=== PATIENT | male | born 1970 | race Caucasian/White ===

== ENCOUNTER 2019-05-11 17:16 | Emergency (ER) | payer OTHER, SELFPAY ==
[2019-05-11 17:19] VITALS: BP 161/92; PULSE 68; RESP 16; TEMP 36.9; O2SAT 99
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
== END 2019-05-11 18:43 | disposition home or self-care (01) ==
PROVIDERS: Emergency Provider Physician Assistant; PCP Internal Medicine
DX: S53.401A Unspecified sprain of right elbow, initial encounter (principal); M75.21 Bicipital tendinitis, right shoulder; V49.40XA Driver injured in collision with unspecified motor vehicles in traffic accident, initial encounter
CPT/HCPCS: 99283; 73080

== ENCOUNTER 2023-12-05 20:02 | Emergency (ER) | payer BC, SELFPAY ==
[2023-12-05 20:07] VITALS: BP 158/89; PULSE 64; TEMP 36.6; O2SAT 96
--- NOTE | 2023-12-05 20:45 | DI.RAD_ITS ---
Exam(s) XR TIB/FIB LT EXAM: XR TIB/FIB LT CLINICAL HISTORY: puncture w saw, distal, eval for fx. TECHNIQUE: 2D digital imaging was performed. Two views. COMPARISON: No exams were available for comparison FINDINGS: BONES: No acute fracture is present. No bony destructive lesion is seen. Visualized portion of knee a nd ankle joints are unremarkable. SOFT TISSUE: No foreign body. IMPRESSION: Unremarkable radiographs of the left tibia and fibula. DATA REPOSITORY: RADIATION DOSE DELIVERED:
--- OUTSIDE RECORDS SUMMARY | 2023-12-05 21:15 | XMS_ITS | Continuity of Care Document ---
Author Organization [facility] Address [address] [place] [phone] Care Team Providers Care Livestock Yard Attendant Name Role Phone Aristides Sheets DO Primary Care Physician [phone] Encounter [facility] NBR [id number] Date(s): 11/02/22 - 11/02/[address] [address] [place] Discharge Disposition: Home or Self Care Attending Physician: Molly Anglin PA-C Admitting Physician: Molly Anglin PA-C Referring Physician: Molly Anglin PA-C Allergies, Adverse Reactions, Alerts Substance Reaction Severity Status simvastatin Muscle aches February 2016 Moderate A ctive Seasonal Unknown Moderate Active Immunizations Given and Recorded Vaccine Date Status Refusal Reason influenza virus vaccine, inactivated 12/25/21 Give n tetanus/diphth/pertuss (Tdap) adult/adol 1 12/14/14 Recorded 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[employer] Medications pravastatin 40 mg oral tablet See Instructions, TAKE 1 TABLET BY MOUTH AT NIGHT FOR HIGH CHOLESTEROL, # 90 tab, 3 Refill(s), Pharmacy: [facility] #[id number] Start Date: 07/03/22 Status: Ordered Problem List Condition Confirmation Course Effective Dates Status H ealt Status Informant Diverticular disease Confirmed Active Hypercholesterolemia Confirmed Active Leukocytosis Confirmed Active Results Radiology Reports * Exam Date Time Procedure Performing Provider Status 11/02/22 7:28 AM US Abdomen Limited Henrique Gandhi; Sylvia th (Verified) Notes: (US Abdomen Limited) Reason For Exam: RUQ/right flank pain US Abdomen Limited PROCEDURE INFORMATION: Exam: US Abdomen, Limited; Right Upper Quadrant Exam date and time: 11/02/2022 6:58 AM Age: 52 years old Clinical indication: Right upper quadrant pain; Unspecified abdominal pain; Additional info: Ruq/right flank pain TECHNIQUE: Imaging protocol: Real time ultrasound of the abdomen with image documentation. Limited exam focused on the right upper quadrant. COMPARISON: CT ABD/PELVIS WO CONTRAST 09/02/2017 10:55 AM FINDINGS: Liver: Liver 16 cm. Liver is unremarkable. Gallbladder: gallbladder normal. No pericholecystic fluid or gallbladder wall thickening. Biliary ducts: Common bile duct 4 mm. Common bile duct normal. Pancreas: Poorly characterized pancreas secondary to overlying bowel gas. Right kidney: Right kidney 10.8 cm. Right kidney is normal. Portal venous: Flow within the portal vein is towards the liver- hepatopedal IMPRESSION: Normal right upper quadrant ultrasound. THIS DOCUMENT HAS BEEN ELECTRONICALLY SIGNED BY GONZALO GURROLA MD on 11/02/2022 02:27 PM Final Signed by: Gonzalo Gurrola MD Signed (Electronic Signature): 11/02/2022 2:27 pm Social History Social History Type Response Tobacco Never tobacco user T obacco Use:. Sex Patient Care team information Care Team Personnel Name: Aristides Sheets DO Position: Physician Member Role: Primary Care Physician Address: Address: [address] [place] [phone] [place] Care Team Related Persons Name: ROOSEVELT ROBLES Address: Home
--- OUTSIDE RECORDS SUMMARY | 2023-12-05 21:16 | XMS_ITS | Continuity of Care Document ---
Author Organization [facility] Ambulatory Clinics Address [address] [place] [address] Care Team Providers Care Register Repairer Name Role Phone Aristides Sheets DO Primary Care Physician Encounter [facility] NBR [id number] Date(s): 10/31/22 - 10/31/22 [facility] Ambulatory Clinics [address] [place] [phone] [place] Discharge Disposition: Home Allergies, Adverse Reactions, Alerts Substance Reaction Severity Status simvastatin Muscle aches February 2016 Moderate A ctive Seasonal Unknown Moderate Active Assessment and Plan Future Appointments Future Scheduled Tests Radiology* US Abdomen Limited 11/02/22 Immunizations Given and Recorded Vaccine Date Status Refusal Reason influenza virus vaccine, inactivated 12/25/21 Give n tetanus/diphth/pertuss (Tdap) adult/adol 1 12/14/14 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 Sex Patient Care team information Care Team Personnel Name: Aristides Sheets DO Position: Physician Member Role: Primary Care Physician Address: Address: [address] [place] [phone] [place] Care Team Related Persons Name: ROOSEVELT ROBLES Address: Home
--- OUTSIDE RECORDS SUMMARY | 2023-12-05 21:16 | XMS_ITS | Encounter Summary ---
Author Organization [facility] Address [address] [place] [address] Care Team Providers Care Appointment Clerk Name Role Phone Unknown, Provider Primary Care Provider Encounter Details Date Type Department Care Team (Latest Contact Info) Description 05/13/2017 10:10 EST - 05/13/2017 23:59 EST Hospital Encounter [address] [address] Unknown, Provider, Discharge Disposition: Home or Self Care Social History Tobacco Use Types Packs/Day Years Used Date Smoking Tobacco: Never Assessed Sex and Gender Information Value Date Recorded Sex Assigned at Not on file Gender Identity Not on file Sexual Orientation Not on file documented as of this encounter Discharge Disposition Disposition Code Departure Means Destination Home or Self Halfway documented in this encounter Plan of Treatment Not on file documented as of this encounter Visit Diagnoses Not on filedocumented in this encounter Care Teams Appointment Clerk Relationship Specialty Start Date End Date Unknown, Provider, PCP - General 01/25/15 05/15/17 documented as of this encounter
--- OUTSIDE RECORDS SUMMARY | 2023-12-05 21:16 | XMS_ITS | Encounter Summary ---
Author Organization [facility] Address [address] [place] [address] Care Team Providers Care Donor Services Coordinator Name Role Phone Nadia Hansen DO Primary Care Provider [phone] Encounter Details Date Type Department Care Team (Late st Contact Info) Description 01/10/2021 Lab Requisition [facility] - [facility] [address] [place] [address] Tahir Aleman, [address] GALLO [address] [place] [phone] Neoplasm of unspecified behavior of bone, soft tissue, and skin Social History Tobacco Use Types Packs/Day Years Used Date Smoking Tobacco: Never Assessed Interpersonal Safety Answer Date Record ed Physically Hurt Never 10/18/2019 Verbally Threaten Not on file 10/18/2019 Sex and Gender Information Value Date Recorded Sex Assigned at Not on file Gender Identity Not on file Sexual Orientation Not on file documented as of this encounter Plan of Treatment Not on file documented as of this encounter Procedures Procedure Name Priority Date/Time Associated Diagnosis Comments SURGICAL PATHOLOGY Today 01/09/2021 9: 25 EDT Neoplasm of unspecified behavior of bone, soft tissue, and skin documented in this encounter Results * SURGICAL PATHOLOGY (01/09/2021 9:25 EDT) Note to Patient The following pathology results have been interpreted by your pathologist and may be available to you before your health provider has had the opportunity to review them. Please allow time for your provider to receive these results and explore management options, if applicable. 01/11/2021 8:49 [facility] Final Diagnosis A. SKIN OF GNOSTICIST, LEFT, SHAVE BIOPSY: - Seborrheic keratosis. 01/11/2021 8:49 [facility] Attestation By the signature below, the attending physician certifies that they have 1) personally conducted a gross and/or microscopic examination of the described specimen(s), and/or personally interpreted the results of laboratory testing of the described specimen(s), and 2) personally rendered or confirmed the above diagnosis. 01/11/2021 8:49 [facility] at 0849 Clinical History Growing lesion; clinical diagnosis code: D49.2 01/11/2021 8:49 [facility] Gross Description A. Received in formalin labelled with proper patient identification (initials K, K) and left mandaen is a shave biopsy of a cantu-brown cobblestone plaque measuring 1.4 x 1.1 x 0.2 cm. Inked, serially sectioned and submitted entirely in A1-A2. TORRI SPEARS(ASCP) 01/10/2021 19:40 01/11/2021 8:49 [facility] Performing Lab [facility] 01/11/2021 8:49 [facility] Scanned Images 01/11/2021 8:49 [facility] Tissue TISSUE SPECIMEN FROM SKIN / Unknown 01/09/2021 9:25 EDT 01/10/2021 16:57 EDT Tahir Aleman DO PATHOLOGY ORDER [facility] [address] [place] [address] documented in this encounter Visit Diagnoses Diagnosis Neoplasm of unspecified behavior of bone, soft tissue, and skin documented in this encounter Care Teams Donor Services Coordinator Relationship Specialty Start Date End Date Nadia Hansen DO [address] [place] [address] PCP - General Family Medicine - Primary Care 05/16/20 documented as of this encounter
--- OUTSIDE RECORDS SUMMARY | 2023-12-05 21:16 | XMS_ITS | Encounter Summary ---
Author Organization [facility] Address [address] [place] [address] Care Team Providers Care Radio Television Technical Director Name Role Phone Unavailable Primary Care Provider Unavailabl e Encounter Details Date Type Department Care Team (Late st Contact Info) Description 01/20/2004 Results Only [facility] [address] [place] [address] Alvin Infante MD [address] [place] [phone] Social History Tobacco Use Types Packs/Day Years Used Date Smoking Tobacco: Never Assessed Sex and Gender Information Value Date Recorded Sex Assigned at Not on file Gender Identity Not on file Sexual Orientation Not on file documented as of this encounter Plan of Treatment Not on file documented as of this encounter Procedures Procedure Name Priority Date/Time Associated Diagnosis Comments SURGICAL PATHOLOGY Routine 01/20/2004 0:00 EST documented in this encounter Results * SURGICAL PATHOLOGY (01/20/2004 0:00 EST) Pathology Report: SURGICAL PATHOLOGY REPORT Reports generated via electronic interface contain original data; however they are lacking the format of the original report. Caution should be taken when reading/interpreti ng unformatted reports. Name: ? GONZALO APPLE ? Accession #: ? [id number] ? : ? 1970 (Age: 33) ??M ? Collect Date: ? 01/20/2004 ? Location: ? [facility] ? Receive Date: ? 01/21/2004 ? Provider: SHANNON INFANTE MD Copy to: ? Final Pathologic Diagnosis: A. ?Portion of vas deferens, left, vasectomy: 1. ?Full luminal cross section identified with no pathologic features. B. ?Portion of vas deferens, right, vasectomy: ? 1. ?? Full luminal cross section identified with no pathologic features. Document reviewed and electronically signed by: CY CHATTERJEE MD Report ??Date: 01/25/2004 11:31 By the signature above, the attending physician certifies that he/she has personally conducted a gross and/or microscopic examination of the described specimens and rendered or confirmed the above diagnosis. Specimen(s) Received: A. ?Left vas deferens (#1) B. ?Right vas deferens (#2) Clinical History: ? Family planning Gross Description: ? Received in formalin labelled Knights and left vas deferens is a 0.7 x 0.3 x 0.2 cm white-gibbs, tubular soft tissue with a pinpoint lumen. ??The specimen is bisected and submitted in its entirety as (A). Received in formalin labelled Knights and right vas deferens is a 0.3 cm in length by 0.3 cm in diameter white-gibbs, tubular structure with a pinpoint lumen which is submitted in toto as (B). ??(Mira Cavazos)/joseph End of Report [facility] 01/20/2004 01/21/2004 15: 11 EST Alvin Infante MD PATHOLOGY ORDER[facility]LES [facility] [address] [place] [address] documented in this encounter Visit Diagnoses Not on filedocumented in this encounter
--- OUTSIDE RECORDS SUMMARY | 2023-12-05 21:16 | XMS_ITS | Continuity of Care Document ---
Author Organization [facility] Ambulatory Clin[facility] Address [address] [place] [address] Care Team Providers Care Teamcenter Solution Architect Name Role Phone Aristides Sheets DO Primary Care Physician Encounter [facility] NBR [id number] Date(s): 12/25/21 - 12/25/21 [facility] [address] [place], [place] [address] Encounter Diagnosis Routine adult health maintenance(Discharge Diagnosis) - 12/25/21 Fatigue(Discharge Diagnosis) - 12/25/21 Lipid screening(Discharge Diagnosis) - 12/25/21 Prostate cancer screening(Discharge Diagnosis) - 12/25/21 Encounter for immunization(Discharge Diagnosis) - 12/25/21 Discharge Disposition: Home or Self Care Attending Physician: Aristides Sheets DO Allergies, Adverse Reactions, Alerts Substance Reaction Severity Status simvastatin Muscle aches February 2016 Moderate A ctive Seasonal Unknown Moderate Active Functional Status 12/25/21 Other exposure to Infectious Disease Non e Immunizations Given and Recorded Vaccine Date Status Refusal Reason influenza virus vaccine, inactivated 12/25/21 Give n tetanus/diphth/pertuss (Tdap) adult/adol 1 12/14/14 Recorded 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[employer] 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 pravastatin 40 mg oral tablet 1 Unknown, 0 Refill(s) Start Date: 12/21/21 Status: Ordered Problem List Condition Confirmation Course Effective Dates Status H ealth Status Informant Diverticular disease Confirmed Active Hypercholesterolemia Confirmed Active Leukocytosis Confirmed Active Vital Signs Most recent to oldest [Reference Range]: 1 Temperature Tympanic [36.6-37.9 Deg C] 3 6.2 Deg C *LOW* (12/25/21 8:22 AM) Peripheral Pulse Rate [60-100 bpm] 54 bp m *LOW* (12/25/21 8:22 AM) Blood Pressure [90-140/60-90 mmHg] 110/6 2mmHg (12/25/21 8:22 AM) Weight 99.6 kg (12/25/21 8:22 AM) Weight Measured (lbs) 219.58 lb (12/25/21 8:22 AM) Social History Social History Type Response Tobacco Never tobacco user T obacco Use:. Sex Patient Care team information Personnel Name: Aristides Sheets DO Address: Address: [address] [place] [phone]
--- OUTSIDE RECORDS SUMMARY | 2023-12-05 21:16 | XMS_ITS | Encounter Summary ---
Author Organization [facility] Address [address] [place] [address] Care Team Providers Care Winding Machine Operator Name Role Phone Nadia Hansen DO Primary Care Provider [phone]- [phone] Encounter Details Date Type Department Care Team (Late st Contact Info) Description 05/23/2020 Lab Requisition [facility] Pathology & Laboratory Medicine - [facility] [address] [place] [address] Brad Blake MD [address] [place] [phone] Encounter for screening for malignant neoplasm of colon; Melena; Lower abdominal pain, unspecified; Diarrhea, unspecified Social History Tobacco Use Types Packs/Day Years [...] Date/Time Associated Diagnosis Comments SURGICAL PATHOLOGY Today 05/23/2020 9: 17 EST Encounter for screening for malignant neoplasm of colon Melena Lower abdominal pain, unspecified Diarrhea, unspecified documented in this encounter Results * SURGICAL PATHOLOGY (05/23/2020 9:17 EST) Final Diagnosis A. COLON, RANDOM, BIOPSY: - Colonic mucosa with no significant diagnostic abnormality. B. COLON, SIGMOID, 2 MM, BIOPSY: - Colonic mucosa with prominent lymphoid aggregate. C. COLON, SIGMOID, BIOPSY: - Hyperplastic polyp. - Deeper levels examined. D. COLON, SIGMOID, MID, BIOPSY: - Hyperplastic polyp. 05/26/2020 11:26 [facility] Attestation By the signature below, the attending physician certifies that they have 1) personally conducted a gross and/or microscopic examination of the described specimen(s), and/or personally interpreted the results of laboratory testing of the described specimen(s), and 2) personally rendered or confirmed the above diagnosis. 05/26/2020 11:26 [facility] at 1126 Clinical History History diverticulosis, hematochezia, lower abdominal pain; clinical diagnosis code: Z12.1, K92.1, K10.30, R19.7 05/26/2020 11:26 [facility] Gross Description A. Received in formalin labelled with proper patient identification (initials K, K) and random colon Bx is a single fragment of gibbs tissue (0.3 x 0.2 x 0.2 cm). The specimen is submitted entirely in A1. B. Received in formalin labelled with proper patient identification (initials K, K) and sigmoid colon 2 mm is a single fragment of gibbs tissue (0.1 x 0.1 x 0.1 cm). The specimen is submitted in B1. C. Received in formalin labelled with proper patient identification (initials K, K) and sigmoid colon Bx is a single fragment of gibbs tissue (0.3 x 0.2 x 0.2 cm). The specimen is submitted in C1. D. Received in formalin labelled with proper patient identification (initials K, K) and mid sigmoid colon polyp 2 mm is a single fragment of gibbs tissue (0.3 x 0.2 x 0.2 cm). The specimen is submitted in D1. TORRI GARCIA(ASCP) 05/23/2020 16:14 05/26/2020 11:26 [facility] Performing Lab [facility] 05/26/2020 11:26 [facility] Scanned Images 05/26/2020 11:26 EST [facility] Tissue COLON STRUCTURE / Unknown 05/23/2020 9:17 EST 05/23/2020 16:07 EST Tissue specimen (specimen) POLYP OF COLON / Unknown 05/23/2020 9:17 EST 05/23/2020 16:07 EST Tissue specimen (specimen) COLON STRUCTURE / Unknown 05/23/2020 9:17 EST 05/23/2020 16:07 EST Tissue specimen (specimen) POLYP OF COLON / Unknown 05/23/2020 9:17 EST 05/23/2020 16:07 EST Brad Blake MD PATHOLOGY ORD ERABLES [facility] [address] [place] [address] documented in this encounter Visit Diagnoses Diagnosis Encounter for screening for malignant neoplasm of colon Special screening for malignant neoplasms, colon Melena Blood in stool Lower abdominal pain, unspecified Diarrhea, unspecified documented in this encounter Care Teams Winding Machine Operator Relationship Specialty Start Date End Date Nadia Hansen DO [address] [place] [address] PCP - General Family Medicine - Primary Care 05/16/20 documented as of this encounter
--- OUTSIDE RECORDS SUMMARY | 2023-12-05 21:16 | XMS_ITS | Continuity of Care Document ---
Author Organization [facility] Address [address] [place] [phone] Care Team Providers Care Acetylene Torch Operator Name Role Phone Aristides Sheets DO Primary Care Physician [phone] Encounter [facility] FIN NBR [id number] Date(s): 10/31/22 - 10/31/[address] [address] Discharge Disposition: Home or Self Care Attending Physician: Molly Anglin PA-C Admitting Physician: Molly Anglin PA-C Allergies, Adverse Reactions, Alerts Substance Reaction Severity Status simvastatin Muscle aches February 2016 Moderate A ctive Seasonal Unknown Moderate Active Assessment and Plan Future Appointments Future Scheduled Tests Radiology* US Abdomen Limited 11/02/22 Immunizations Given and Recorded Vaccine Date Status Refusal Reason influenza virus vaccine, inactivated 12/25/21 Give n tetanus/diphth/pertuss (Tdap) adult/adol 1 12/14/14 Recorded 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 Sex Patient Care team information Care Team Personnel Name: Aristides Sheets DO Position: Physician Member Role: Primary Care Physician Address: Address: [address] [place] [phone] [place] Care Team Related Persons Name: ROOSEVELT ROBLES Address: Home
--- OUTSIDE RECORDS SUMMARY | 2023-12-05 21:16 | XMS_ITS | Continuity of Care Document ---
Author Organization [facility] Amb[facility] Clinics Address [address] [place] [address] Care Team Providers Care Customer Service Technician Name Role Phone Aristides Sheets DO Primary Care Physician Encounter [facility] FIN NBR [id number] Date(s): 10/31/22 - 10/31/22 [facility] Ambulatory Clinics [address] [place] [address] [place] Encounter Diagnosis Right flank pain(Discharge Diagnosis) - 10/31/22 Right upper quadrant pain(Discharge Diagnosis) - 10/31/22 Discharge Disposition: Home or Self Care Attending Physician: Molly Anglin PA-C Allergies, Adverse Reactions, Alerts Substance Reaction Severity Status simvastatin Muscle aches February 2016 Moderate A ctive Seasonal Unknown Moderate Active Assessment and Plan Future Appointments Future Scheduled Tests Radiology* US Abdomen Limited 11/02/22 Immunizations Given and Recorded Vaccine Date Status Refusal Reason influenza virus vaccine, inactivated 12/25/21 Give n tetanus/diphth/pertuss (Tdap) adult/adol 1 12/14/14 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[employer] 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 pravastatin 40 mg oral tablet See Instructions, TAKE 1 TABLET BY MOUTH AT NIGHT FOR HIGH CHOLESTEROL, # 90 tab, 3 Refill(s), Pharmacy: [facility] #[id number] Start Date: 07/03/22 Status: Ordered Problem List Condition Confirmation Course Effective Dates Status H ealth Status Informant Diverticular disease Confirmed Active Hypercholesterolemia Confirmed Active Leukocytosis Confirmed Active Results Laboratory List Name Date .Urinalysis POCT 10/31/22 Most recent to oldest [Reference Range]: 1 Method of Collect POC clean catch *NA* (10/31/22 11:15 AM) Specific [place], Ur POC 1.005 *NA* (10/31/22 11:15 AM) Specimen Color POC [Yellow] Light Yellow (10/31/22 11:15 AM) Glucose, Urine POC Negative mg/dL *NA* (10/31/22 11:15 AM) Bilirubin, Urine POC [Negative] Negative (10/31/22 11:15 AM) Ketones, Urine POC [Negative mg/dL] Nega tive mg/dL (10/31/22 11:15 AM) Blood, Urine POC [Negative] Negative (10/31/22 11:15 AM) pH, Urine POC 5.50 *NA* (10/31/22 11:15 AM) Protein, Urine POC [Negative mg/dL] Nega tive mg/dL (10/31/22 11:15 AM) Urobilinogen, Urine POC [0.2] 0.2 (10/31/22 11:15 AM) Nitrite, Urine POC [Negative] Negative (10/31/22 11:15 AM) Leuk Esterase, Urine POC [Negative] Nega tive (10/31/22 11:15 AM) Clarity, Urine POC [Clear] Clear (10/31/22 11:15 AM) Vital Signs Most recent to oldest [Reference Range]: 1 Temperature Tympanic [36.6-37.9 Deg C] 3 6.6 Deg C (10/31/22 10:44 AM) Peripheral Pulse Rate [60-100 bpm] 57 bp m *LOW* (10/31/22 10:44 AM) Respiratory Rate [12-24 br/min] 16 br/mi n (10/31/22 10:44 AM) Blood Pressure [90-140/60-90 mmHg] 145/8 6mmHg *HI* (10/31/22 10:44 AM) Weight 96 kg (10/31/22 10:44 AM) Weight Measured (lbs) 211.644 lb (10/31/22 10:44 AM) Height 172 cm (10/31/22 10:44 AM) Height/Length Measured (inches) 67.72 in (10/31/22 10:44 AM) BSA Measured 2.14 m2 (10/31/22 10:44 AM) Body Mass Index 32.45 kg/m2 (10/31/22 10:44 AM) Social History Social History Type Response Tobacco Never tobacco user T obacco Use:. Sex Physician Outpatient Note * Molly Linnette, PA-C: PERFORM Event Display: Office Clinic Note Physician Authored Date: [id number] AMBIKA GONZALO Vernon :1970 Age:52 years Sex:Male Visit Date:10/31/2022 Primary Care Physician: Aristides Sheets DO Chief Complaint pt complains of pain that started on R lower back and has radiated to RLQ History of Present Illness This is a 52-year-old male who presents for evaluation of right flank pain. 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 He notes that about??a month ago he developed pain in the right??mid back area.?? Over the past week he has developed some intermittent discomfort in the right??abdominal area.?? This comes and goes and he does feel worsens after eating.?He denies any associated nausea, vomiting, poor appetite, diarrhea, blood in the stool.?? He has wondered about a possible kidney stone. ??He denies any urgency, frequency, weak stream, dribbling, or blood in the urine.?? He denies noticing any lumps or bulges.?? He has otherwise been feeling well and is not having much discomfort today Physical Exam Vitals & Measurements T:??36.6?C ??(Tympanic)?? HR:??57??(Peripheral)?? RR:??16?? BP:??145/86?? SpO2:??98%?? HT:??172??cm?? WT:??96??kg?? BMI:??32.45?? Pain Score:??5?? BSA:??2.14?? General: A&O x 3, well-built and hydrated, no acute distress Mouth: moist mucous membranes without lesions Throat: oropharynx and tonsils without erythema or exudate Neck:??5/5 flexion and extension, supple, no lymphadenopathy Chest: symmetric rise Heart: normal S1S2, no murmurs, rubs, gallops Lungs: equal and symmetric respiratory effort, lungs clear to auscultation without wheezes, rales, rhonchi Back: no CVA tenderness, hypertonicity external obliques and latissimus dorsi, no vertebral spine tenderness Abdomen: soft, non-distended, no ecchymoses, bowel sounds normoactive, no tenderness, rebound, guarding, rigidity. Negative Rodriguez's sign Extremities: no cyanosis or pallor, no clubbing or edema??equal and symmetric pulses Assessment/Plan 1.??Right upper quadrant pain??R10.11 Patient presenting with 1 month of right flank pain and approximately 1 week of intermittent right upper quadrant pain. ??His exam is benign today and has no pinpoint tenderness and a negative Murphysign. ??His urine dip shows no blood, leukocytes, nitrates so do not suspect??nephrolithiasis or pyelonephritis. ??We discussed the possibility of gallstones and patient is receptive to proceeding with right upper quadrant ultrasound. ??He was scheduled for??Saturday morning. ??We will follow-up pending these results.?? We reviewed the etiology and management of potential??gallstones.?? We discussed following a low-fat diet??in the meantime??and staying well-hydrated.?? We will follow-up pending these results. ??He understands that for any acute, persistent right upper quadrant pain, especiallyif associated with nausea, vomiting, fever he is to be seen in the emergency room. Ordered: US Abdomen Limited, 10/31/22, Routine, Reason: RUQ/right flank pain, Transport Mode: Ambulatory, Right upper quadrant pain Right flank pain ?? 2.??Right flank pain??R10.9 Ordered: Urine Dipstick Clinic POC (RE), 10/31/22 11:11:00 EDT, Right flank pain, 10/31/22 11:11:00 EDT US Abdomen Limited, 10/31/22, Routine, Reason: RUQ/right flank pain, Transport Mode: Ambulatory, Right upper quadrant pain Right flank pain ?? Future Orders US Abdomen Limited, 11/02/22, Routine, Reason: RUQ/right flank pain, Transport Mode: Ambulatory, Right upper quadrant pain Right flank pain, ABN Status: Not Required Problem List/Past Medical History Ongoing Diverticular disease Hypercholesterolemia Leukocytosis Historical No qualifying data Medications pravastatin 40 mg oral tablet, See Instructions, 3 refills Allergies Seasonal??(Unknown) simvastatin??(Muscle aches February 2016) Social History Alcohol Current, Beer, Wine, Liquor, 1-2 times per week Electronic Cigarette/Vaping Electronic Cigarette Use: Never. Substance Use Never Tobacco Never tobacco user Tobacco Use:. 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 Results Test Name Test Result Date/Time Method of Collect POC clean catch 10/31/2022 11:15 EDT Specimen Color POC Light Yellow 10/31/2022 11:15 EDT Clarity, Urine POC Clear 10/31/2022 11:15 EDT Glucose, Urine POC Negative 10/31/2022 11:15 EDT Bilirubin, Urine POC Negative 10/31/2022 11:15 EDT Ketones, Urine POC Negative 10/31/2022 11:15 EDT Specific [place], Ur POC 1.005 10/31/2022 11:15 EDT pH, Urine POC 5.50 10/31/2022 11:15 EDT Protein, Urine POC Negative 10/31/2022 11:15 EDT Urobilinogen, Urine POC 0.2 10/31/2022 11:15 EDT Nitrite, Urine POC Negative 10/31/2022 11:15 EDT Blood, Urine POC Negative 10/31/2022 11:15 EDT Leuk Esterase, Urine POC Negative 10/31/2022 11:15 EDT Electronically Signed on 10/31/22 11:42 AM Molly Anglin PA-C Patient Care team information Care Team Personnel Name: Aristides Sheets DO Position: Physician Member Role: Primary Care Physician Address: Address: [address] [place] [phone] [place] Care Team Related Persons Name: ROOSEVELT ROBLES Address: Home
--- OUTSIDE RECORDS SUMMARY | 2023-12-05 21:16 | XMS_ITS | Continuity of Care Document ---
Author Organization [facility] [place] [place] [facility] Address [address] [place] [address] Care Team Providers Care Kier Operator Name Role Phone Aristides Sheets DO Primary Care Physician Encounter [facility] NBR [id number] Date(s): 12/25/21 - 12/25/[address] [address]- Discharge Disposition: Home or Self Care Attending Physician: Aristides Sheets DO Admitting Physician: Aristides Sheets DO Referring Physician: Aristides Sheets DO Allergies, Adverse Reactions, Alerts Substance Reaction Severity Status simvastatin Muscle aches February 2016 Moderate A ctive Seasonal Unknown Moderate Active Immunizations Given and Recorded Vaccine Date Status Refusal Reason influenza virus vaccine, inactivated 12/25/21 Give n tetanus/diphth/pertuss (Tdap) adult/adol 1 12/14/14 Recorded 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[employer] 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 pravastatin 40 mg oral tablet 1 Unknown, 0 Refill(s) Start Date: 12/21/21 Status: Ordered Problem List Condition Confirmation Course Effective Dates [facility] Status Informant Diverticular disease Confirmed Active Hypercholesterolemia Confirmed Active Leukocytosis Confirmed Active Results Laboratory List Name Date Automated Diff 12/25/21 CBC w/ Diff 12/25/21 Comprehensive Metabolic Panel (CMP) 12/16 Lipid Panel 12/25/21 PSA Screen 12/25/21 TSH w/ Rflx to Free T4 12/25/21 Most recent to oldest [Reference Range]: 1 WBC [4.8-10.8 K/mcL] 5.9 K/mcL (12/25/21 9:11 AM) RBC [4.20-6.10 Million/mcL] 5.26 Million /mcL (12/25/21 AM) Neutro Auto [42.2-75.2 %] 48.0 % (12/25/21:11 AM) Lymph Auto [20.5-51.1 %] 35.8 % (12/25/21 AM) [place] Auto [1.7-9.3 %] 7.5 % (12/25/21: AM) Basophil Auto [0.0-0.2 %] 1.9 % *HI* (12/25/21 AM) BUN [8-26 mg/dL] 19 mg/dL (12/25/21 AM) Cholesterol Total [129-209 mg/dL] 217 mg /dL *HI* (12/25/21 AM) LDL 140.8 *NA* (12/25/21 AM) Glucose Level [74-106 mg/dL] 89 mg/dL (12/25/21 AM) Potassium Level [3.5-5.1 mmol/L] 4.6 mmo l/L (12/25/21 AM) Baso Absolute [0.0-0.2 K/mcL] 0.1 K/mcL (12/25/2111 AM) MCV [80.0-99.0 fL] 91.1 fL (12/25/21 AM) HDL [40-80 mg/dL] 46 mg/dL (12/25/2111 AM) AST [15-41 IntlUnit/L] 25 IntlUnit/L (12/25/21 AM) ALT [17-63 IntlUnit/L] 34 IntlUnit/L (12/25/2111 AM) MCHC [32.0-36.0 g/dL] 33.6 g/dL (12/25/2111 AM) Osmolality [275-295 mOsm/kg] 274 mOsm/kg *LOW* (12/25/21 AM) Sodium Level [134-143 mmol/L] 136 mmol/L (12/25/21:11 AM) Chol/HDL 4.7 *NA* (12/25/21 AM) Lymph Absolute [1.2-3.4 K/mcL] 2.1 K/mcL (12/25/21 9:11 AM) Hct [37.0-52.0 %] 47.9 % (12/25/2111 AM) Triglycerides [10-150 mg/dL] 152 mg/dL *HI* (12/25/2111 AM) Calcium Level [8.9-10.3 mg/dL] 9.3 mg/dL (12/25/21 911 AM) [place] Absolute [0.1-0.6 K/mcL] 0.4 K/mcL (12/25/2111 AM) Albumin Level [3.5-5.0 g/dL] 4.1 g/dL (12/25/2111 AM) Protein Total [6.5-8.1 g/dL] 7.2 g/dL (12/25/21:11 AM) MCH [27.0-31.0 pg] 30.6 pg (12/25/21:11 AM) Neutro Absolute [1.4-6.5 K/mcL] 2.8 K/mc L (12/25/21:11 AM) Bilirubin Total [0.2-1.2 mg/dL] 0.8 mg/d L (12/25/21:11 AM) Hgb [12.0-18.0 g/dL] 16.1 g/dL (12/25/21 9:11 AM) Alk Phos [38-130 IntlUnit/L] 77 IntlUnit /L (12/25/21 9:11 AM) MPV [7.4-10.4 fL] 10.4 fL (12/25/21 9:11 AM) Platelets [130-400 K/mcL] 221 K/mcL (12/25/21 9:11 AM) CO2 [22-32 mmol/L] 28 mmol/L (12/25/21 9:11 AM) Eos Absolute [0.0-0.2 K/mcL] 0.4 K/mcL *HI* (12/25/21 9:11 AM) TSH [0.45-5.33 mIntlUnit/mL] 2.19 mIntlU nit/mL (12/25/21 9:11 AM) eGFR Non-AA 93 *NA* (12/25/21 9:11 AM) eGFR AA 93 *NA* (12/25/21 9:11 AM) Chloride Level [98-111 mmol/L] 103 mmol/ L (12/25/21 9:11 AM) RDW-CV [11.5-14.5 %] 12.2 % (12/25/21 9:11 AM) A/G Ratio 1.3 *NA* (12/25/21 9:11 AM) BUN/Creat Ratio [8.0-20.0] 19.2 (12/25/21 9:11 AM) Globulin 3.1 *NA* (12/25/21 9:11 AM) Imm Gran Absolute 0.03 *NA* (12/25/21 9:11 AM) Imm Gran Auto [0.0-0.5 %] 0.5 % (12/25/21 9:11 AM) Creatinine Level [0.61-1.24 mg/dL] 0.99 mg/dL (12/25/21 9:11 AM) PSA Total Screening [<=4.000 ng/mL] 0.32 6 ng/mL (12/25/21 9:11 AM) Anion Gap [3.0-12.0] 5.0 (12/25/21 9:11 AM) Eos, Auto [0.00-3.00 %] 6.30 % *HI* (12/25/21 9:11 AM) Social History Social History Type Response Tobacco Never tobacco user T obacco Use:. Sex Patient Care team information Personnel Name: Aristides Sheets DO Address: Address: [address] [place] [phone]
--- OUTSIDE RECORDS SUMMARY | 2023-12-05 21:16 | XMS_ITS | Referral Summary ---
Author Organization [facility] Address [address] [place] [address] Care Team Providers Care Business Affairs Manager Name Role Phone Liana Hanseneen Suhail STOCKTON Primary Care Provider [phone] Social History Tobacco Use Types Packs/Day Years Used Date Smoking Tobacco: Never Assessed Interpersonal Safety Answer Date Record ed Physically Hurt Never 10/18/2019 Verbally Threaten Not on file 10/18/2019 Sex and Gender Information Value Date Recorded Sex Assigned at Not on file Gender Identity Not on file Sexual Orientation Not on file Plan of Treatment Not on file Care Teams Business Affairs Manager Relationship Specialty Start Date End Date Nadia Hansen DO [address] [place] [address] PCP - General Family Medicine - Primary Care 05/16/20
--- OUTSIDE RECORDS SUMMARY | 2023-12-05 21:16 | XMS_ITS | Encounter Summary ---
Author Organization [facility] Address [address] [place] [address] Care Team Providers Care Excelsior Cutter Name Role Phone Unknown, Provider Primary Care Provider Encounter Details Date Type Department Care Team (Late st Contact Info) Description 05/13/2017 Results Only [facility] [phone] [place] [address] [place] [address] [place] [id number] Social History Tobacco Use Types Packs/Day Years Used Date Smoking Tobacco: Never Assessed Sex and Gender Information Value Date Recorded Sex Assigned at Not on file Gender Identity Not on file Sexual Orientation Not on file documented as of this encounter Plan of Treatment Not on file documented as of this encounter Procedures Procedure Name Priority Date/Time Associated Diagnosis Comments SURGICAL PATHOLOGY Routine 05/13/2017 8:09 EST documented in this encounter Results * SURGICAL PATHOLOGY (05/13/2017 8:09 EST) Pathology Report: SURGICAL PATHOLOGY REPORT Reports generated via electronic interface contain original data; however they are lacking the format of the original report. Caution should be taken when reading/interpret ing unformatted reports. Name: ? GONZALO APPLE ? Accession #: ? [id number] ? : ? 1970 (Age: 46) ??M ? Collect Date: ? 05/13/2017 ? Location: ? [facility] ? Receive Date: ? 05/14/2017 ? Provider: PATRICIA ASENCIO MD Copy to: YENNIFER MCMANUS DO ? Final Pathologic Diagnosis: A. COLON, SIGMOID POLYP #1, BIOPSY: - ??Inflammatory polyp. B. COLON, SIGMOID POLYP #2, BIOPSY: - ??Hyperplastic polyp. Document reviewed and electronically signed by: ERIC HALE MD Report ??Date: 05/14/2017 16:22 By the signature above, the attending physician certifies that he/she has personally conducted a gross and/or microscopic examination of the described specimens and rendered or confirmed the above diagnosis. Specimen(s) Received: A. ??Sigmoid polyp B. ??Sigmoid polyp Clinical History: Change in bowel habits Gross Description: A. ?Received in formalin labelled with proper patient identification (initials K, K) and 1. sigmoid polyp is a single pink-gibbs tissue fragment (0.5 x 0.3 x 0.2 cm). Submitted intact in A1. B. ?Received in formalin labelled with proper patient identification (initials K, K) and 2. sigmoid polyp is a single pink-gibbs tissue fragment (0.4 x 0.2 x 0.2 cm). Submitted intact in B1. TORRI Patel (ASCP) 05/14/2017 9:19 AM End of Report [facility] 05/13/2017 8:09 EST 05/14/2017 8:09 EST Patricia Asencio MD PATHOLOGY ORDERA THERESA [facility] [address] [place] [id number] documented in this encounter Visit Diagnoses Not on filedocumented in this encounter Care Teams Excelsior Cutter Relationship Specialty Start Date End Date Unknown, Provider, PCP - General 01/25/15 05/15/17 documented as of this encounter
--- OUTSIDE RECORDS SUMMARY | 2023-12-05 21:16 | XMS_ITS | Clinical Summary ---
Author Organization [facility] Address [address] [place] [address] Care Team Providers Care Medicine Tech Name Role Phone Nadia Hansen DO Primary Care Provider +1- [phone] Social History Tobacco Use Types Packs/Day Years Used Date Smoking Tobacco: Never Assessed Interpersonal Safety Answer Date Record ed Physically Hurt Never 10/18/2019 Verbally Threaten Not on file 10/18/2019 Sex and Gender Information Value Date Recorded Sex Assigned at Not on file Gender Identity Not on file Sexual Orientation Not on file Plan of Treatment Health Maintenance Due Date Last Done Comments Hepatitis C Screen 1970 Hepatitis B Vaccine (1 of 3 - 19+ 3-dose series) 06/05 COVID-19 Vaccine ( season) 2023 Care Teams Medicine Tech Relationship Specialty Start Date End Date Nadia Hansen DO [address] [place] [address] PCP - General Family Medicine - Primary Care 05/16/20
--- NOTE | 2023-12-05 21:50 | DI.VRAD_ITS ---
PROCEDURE INFORMATION: Exam: XR Left Tibia and Fibula Exam date and time: 12/05/2023 9:00 PM Age: 53 years old Clinical indication: Injury or trauma; Other: Puncture w saw, distal, eval for FX; Blunt trauma; Lower leg; Left TECHNIQUE: Imaging protocol: Radiologic exam of the left tibia and fibula. Views: 2 views. COMPARISON: No relevant prior studies available. FINDINGS: Bones/joints: No acute fracture or subluxation. Soft tissues: No radiopaque foreign body is seen. IMPRESSION: No acute bony pathology. Dictated and Authenticated by: Miracle England MD. Ordering:SHENA Akers MD
--- NOTE | 2023-12-06 21:32 | ED.GENADUL_ITS ---
Discharge Plan Disposition Patient Disposition: Home Condition: Stable Discharge Details Clinical Impression: Laceration of billingsley Primary Care Provider: Aristides Nicholas ED Provider: Delphine Paredes Home Meds and New Rx's Prescriptions: Continued pravastatin 10 MG tablet 20 mg PO HS Discharge Instructions Instructions: Taking care of cuts, scrapes, and puncture wounds, Laceration Repair With Glue ED Additional Instructions: Keep clean and dry The glue will wear away in the next 5 to 10 days Try to elevate your leg is much as possible, if you do not will take longer to heal and is more likely become infected Tylenol as needed for pain Return with spreading redness, fever, worsening discomfort Referrals: Aristides Nicholas [Primary Care Provider] - Discharge Data Discharge Date/Time-TO BE ENTERED AT DEPARTURE: 12/05/23 21:33 HPI General Date/Time Provider Initiated Documentation: 12/05/23 20:29 . HPI Narrative: This 53-year-old male presents with laceration with electric saw to left leg. Was sent from urgent care secondary to concern for possible open fracture. Tetanus was updated prior to arrival here. Patient denies any neurovascular changes. Event occurred just prior to arrival. Related Data Home Medications ?Medication ?Instructions ?Recorded ?Confirmed pravastatin 10 mg tablet 20 mg PO HS 08/07/16 12/05/23 Allergies Allergy/AdvReac Type Severity Reaction Status Date / Time codeine AdvReac Nausea Unverified 12/05/23 20:13 General Stated Complaint: Laceration EMIR: 4 Exam Narrative Exam Narrative: 53-year-old male, distal tib-fib region with approximately half inch laceration from saw. Neurovascularly intact, no obvious foreign body Course Vital Signs Vital signs: Vital Signs Temperature 36.6 C 12/05/23 20:07 Pulse 64 12/05/23 20:07 Blood Pressure 158/89 H 12/05/23 20:07 Pulse Oximetry 96 12/05/23 20:07 Temperature 36.6 C 12/05/23 20:07 Pulse 64 12/05/23 20:07 Respiratory Effort Normal, Non-Labored 12/05/23 20:19 Blood Pressure 158/89 H 12/05/23 20:07 Pulse Oximetry 96 12/05/23 20:07 Pain Level 8 12/05/23 20:07 Medical Decision Making 53-year-old male with laceration from sole, not a puncture wound. Tetanus updated prior to arrival. X-ray does not show open fracture, wound cleansed and glue applied. Patient discharged home in stable condition with stable vitals, no indication for antibiotics at this time, neurovascularly intact. Encouraged decreased ambulation and rest Quality:SDOH Health Related Social Needs: No Data to Display PFSH All Active Problems (Updated 12/05/23 @ 21:27 by TORRI Rae) Laceration of billingsley (Acute) Elbow sprain (Acute) Biceps tendinitis (Acute) Medical History (Updated 12/05/23 @ 21:27 by TORRI Rae) Bowel habit changes Surgical History Colonoscopy - MAC (05/13/17) Social History Smoking/Tobacco Use Status: Former Tobacco Use Smoking risk assessment performed?: Yes Alcohol Intake: current Alcohol Intake frequency: a few times a month Alcohol type: beer Drug use: Never Substance use type: does not use Housing: house Do you feel safe at home: Yes Do you feel safe in your relationship?: Yes
== END 2023-12-05 21:33 | disposition home or self-care (01) ==
PROVIDERS: Emergency Provider Physician Assistant; PCP Family Medicine
DX: S81.812A Laceration without foreign body, left lower leg, initial encounter (principal); Z87.891 Personal history of nicotine dependence; W27.0XXA Contact with workbench tool, initial encounter
CPT/HCPCS: 99283; 73590